=== PATIENT | female | born 2000 | race Caucasian/White ===

== ENCOUNTER 2020-05-20 01:18 | Outpatient (CLI) | payer OTHER, SELFPAY ==
[2020-05-20 20:15] LABS: SARS-CoV-2 RNA PCR Negative
== END 2020-05-20 01:19 | disposition home or self-care (01) ==
LOC: ANHCOVIDDT 01:18
PROVIDERS: Visit Provider Otolaryngology
DX: Z01.818 Encounter for other preprocedural examination (principal); Z20.828 Contact with and (suspected) exposure to other viral communicable diseases
CPT/HCPCS: 87635; C9803; U0003

== ENCOUNTER 2020-05-23 01:44 | Day surgery (SDC) | payer OTHER, SELFPAY ==
[2020-05-12 15:30] VITALS: BMI 27.8
--- NOTE | 2020-05-22 10:20 | WPDANESEPPF ---
Anes - Initial Pre Proc Eval Procedure: Operation Date: 05/23/20 10:45 Proposed Procedures p Tonsillectomy - Chidi Bradley MD Date/Time: 05/22/20 10:20 Surgeon: Chidi Bradley MD Pre Op Diagnosis: Hyptertrophic Tonsils Patient Data Age: 19 Gender: F Height: 1.55 m Weight: 66.77 kg Allergies Allergy/AdvReac Type Severity Reaction Status Date / Time No Known Allergies Allergy Mild Verified 05/12/20 15:27 Home Medications Medication Instructions Recorded Confirmed Type cetirizine 10 mg capsule 10 mg PO DAILY PRN 04/27/20 05/12/20 History lactobacillus combination no.8 3,000 mmu cells PO DAILY 05/12/20 05/12/20 History [Adult Probiotic] aqtdkxljbzsq-jvs-dves-FA-vit K 1 tablet PO DAILY 05/12/20 05/12/20 History [Adults Multivitamin] Patient hx anesthesia problems: none Family hx anesthesia problems: none [facility] Surgical History Surgical History (Updated 05/22/20 @ 10:21 by Karl Minaya DO) H/O oral surgery Social History Social History (Updated 04/27/20 @ 09:32 by Beth Tapia CMA) Smoking status: Never smoker Second hand tobacco smoke exposure: No Alcohol intake: current Drinks per week: 4 Substance use: never Substance use type: does not use Living arrangements: with family Spiritual care concerns: No Anes - Eval Final PreProcedure Day of Procedure 05/22/20 10:20 Patient weight: overweight Heart: regular rate and rhythm Lungs: clear to auscultation and normal air movement Airway: Mallampati scale class 1 Neurological: alert and oriented Last oral intake: >/= 8 hours ASA classification: I Emergent: no Anesthetic plan: proceed Anesthesia type and monitoring: general ETT and standard monitoring Informed Consent: The patient's anesthetic plan and its attendant risks and benefits were discussed with the patient/family/POA. Questions were solicited and answers provided to the satisfaction of the patient/family/POA.
--- NOTE | 2020-05-23 06:14 | PM.HPGS ---
History of Present Illness History of Present Illness Consent: Risks, benefits, and alternatives have been discussed and questions answered. Patient agrees to proceed with procedure. Chief complaint: Hyptertrophic Tonsils Narrative: Shashank Ojeda is a 19 year old female recurring episodes of tonsillitis to have a tonsillectomy Review of Systems Review of Systems: All systems reviewed & are unremarkable except as noted in HPI and below PMFSH Surgical History Surgical History (Updated 05/22/20 @ 10:21 by Karl Minaya, ) H/O oral surgery Social History Social History (Updated 04/27/20 @ 09:32 by Beth Tapia, [facility]) Smoking status: Never smoker Second hand tobacco smoke exposure: No Alcohol intake: current Drinks per week: 4 Substance use: never Substance use type: does not use Living arrangements: with family Spiritual care concerns: No Meds Home Medications and Allergies Home Medications Medication Instructions Recorded Confirmed Type cetirizine 10 mg capsule 10 mg PO DAILY PRN 04/27/20 05/12/20 History lactobacillus combination no.8 3,000 mmu cells PO DAILY 05/12/20 05/12/20 History [Adult Probiotic] dtmenejzuexy-mhp-bhtn-FA-vit K 1 tablet PO DAILY 05/12/20 05/12/20 History [Adults Multivitamin] Allergies Allergy/AdvReac Type Severity Reaction Status Date / Time No Known Allergies Allergy Mild Verified 05/12/20 15:27 Assessment and Plan Additional Plan Plan is a tonsillectomy
--- NOTE | 2020-05-23 06:14 | WPDHPUPDATE1 ---
History and Physical Update Update Date/Time: 05/23/20 06:14 History and Physical has been reviewed, including an updated exam of the patient. There are NO changes in the patient's condition. Risks, benefits, and alternatives have been discussed and questions answered. Patient agrees to proceed with procedure.
[2020-05-23 09:20] VITALS: BP 126/81; PULSE 79; RESP 20; TEMP 36.9; O2SAT 99
[2020-05-23] MEDS: ACETAMINOPHEN 500 MG TABLET 1000 MG PO (09:41)
[2020-05-23] MEDS: LACTATED RINGERS 1,000 ML 30 ML IV CONT ×2 (09:45→11:56)
--- NOTE | 2020-05-23 11:26 | PM.PROC ---
Procedure Note - Detailed Date of procedure: 05/23/20 Pre-op diagnosis: Hyptertrophic Tonsils Post-op diagnosis: same Procedure performed: Tonsillectomy Description of procedure: Patient was prepped and draped in usual fashion after induction of anesthesia. The McIvor mouth gag was inserted. The tonsils were removed dissection technique hemostasis was obtained electrocautery. The mouth was inspected for bleeding. When stablized patient was awaken and brought to the recovery room in good condition. Anesthesia: GLMA Surgeon: Chidi Bradley MD Estimated blood loss (mL): 15 Drains: No Packing: No Pathology: none sent Complications: No immediate complications Condition: stable Disposition: PACU Findings: Chronic tonsillitis
[2020-05-23 11:30] VITALS: BP 111/58; PULSE 84; RESP 16; TEMP 36.1; O2SAT 99
[2020-05-23] MEDS: fentaNYL CITRATE INJ (*CRX) 100 MCG/2 ML VIAL 25 MCG IV PUSH ×4 (11:38→12:01)
[2020-05-23 11:45] VITALS: BP 132/88; PULSE 77; RESP 12; O2SAT 100
[2020-05-23 12:00] VITALS: BP 136/75; PULSE 85; RESP 20; O2SAT 100
[2020-05-23 12:15] VITALS: BP 169/87; PULSE 83; RESP 20; O2SAT 100
[2020-05-23 12:30] VITALS: BP 112/80; PULSE 87; RESP 16
== END 2020-05-23 13:17 | disposition home or self-care (01) ==
PROVIDERS: Visit Provider Otolaryngology
PROC: (CPT 42826; principal; 2020-05-23 10:45)
DX: J35.01 Chronic tonsillitis (principal)
CPT/HCPCS: 42826; 88302; 88304; A9270; J0330; J1100; J1170; J2250; J2405; J2704; J3010; J7120